=== PATIENT | female | born 1985 | race Caucasian/White ===

== ENCOUNTER → 2019-08-31 11:46 | Outpatient (BNVA) | payer MEDICARE, MEDICAID, SELFPAY | PROVIDERS: Visit Provider Nurse Practitioner Family | DX: F41.9 Anxiety disorder, unspecified (principal); R19.4 Change in bowel habit; E78.2 Mixed hyperlipidemia; Z79.899 Other long term (current) drug therapy | CPT/HCPCS: 80053; 80061; 81001; 81003; 82784; 83036; 83516; 84443; 85025; 87329 ==

== ENCOUNTER 2019-11-15 18:42 | Emergency (ER) | payer MEDICARE, MEDICAID, SELFPAY ==
[2019-11-15 18:43] VITALS: BP 147/85; PULSE 83; RESP 16; TEMP 36.9; O2SAT 95; BMI 39.1
--- NOTE | 2019-11-15 18:48 | ECG_ITS ---
Measurements Intervals [place] Rate: 82 P: 47 UT: 163 QRS: 50 QRSD: 82 T: 22 QT: 395 QTc: 462 SINUS RHYTHM WITH OCCASIONAL SUPRAVENTRICULAR PREMATURE COMPLEXES No previous ECG available for comparison Electronically Signed On 11-16-2019 16:56:23 CDT by Gerson Abbasi M.D. [id number] f
--- NOTE | 2019-11-15 18:48 | XR_ITS ---
WS: [id number] XR chest 1V portable [id number] REASON FOR EXAM: cough FINDINGS: The heart and mediastinal interfaces were normal. The lung cho are well aerated. No pneumonia, pleural effusion, pulmonary edema, or mass effect. The hilum and apices normal. Granulomas are seen off the left hilar region. There is no osseous abnormalities. XR/XR chest 1V portable [id number] IMPRESSION: Negative chest for acute findings.
--- NOTE | 2019-11-15 19:07 | W.ED.SEIZURE ---
HPI - Seizure General: Chief Complaint: Seizure Stated Complaint: SEIZURE Time Seen by Provider: 11/15/19 18:42 History of Present Illness: HPI Narrative: Estrella is a 34-year-old female who comes in by EMS with report of a seizure. The patient arrives here and admits openly that she has been diagnosed with pseudoseizures . Patient states that she was scared because she was being peer pressure into smoking marijuana. The patient states she is feeling better now. She denies any complaints or concerns. The patient denies any injuries from the seizure. She states she still feels scared and anxious. Associated symptoms: Deny chest pain, chills, confusion, diaphoresis, fever(s), malaise or syncope Review of Systems General: Reports: other (negative unless marked) Const: Denies: fever, chills, body aches, fatigue, malaise or diaphoresis Eyes: Denies: change in vision or blurry vision ENMT: Denies: throat pain, painful swallowing, hoarseness, ear pain, ear discharge, Change in hearing or nasal discharge Card: Denies: chest pain, palpitations, irregular heart rhythm, syncope, pre-syncope, shortness of breath on exertion or shortness of breath when lying down Resp: Denies: shortness of breath, productive cough, non-productive cough, wheezing, coughing up blood or chest congestion GI: Denies: abdominal pain, nausea, vomiting, vomiting blood, coffee grounds in vomit, diarrhea, constipation, cramping, blood in stool or black tarry stool : Denies: flank pain, painful urination, urinary frequency, urinary urgency, decreased urine ouput, urinary incontinence or blood in urine Musc: Denies: neck pain, back pain, extremity pain, extremity swelling, joint pain, joint swelling, joint warmth or joint stiffness Skin/Breast: Denies: rash, skin tenderness or yellow skin Neuro: Denies: headache, numbness in extremities, weakness in extremities, changes in sensation, lack of coordination, difficulty walking, dizziness, vertigo or confusion Endo: Denies: excessive thirst, tired all the time, cold intolerance, excessive sweating, flushing or hot flashes [place]/Lymph: Denies: easy bruising, easy bleeding, petechiae or enlarged lymph nodes All/Imm: Denies: hives, throat swelling, tongue swelling, facial swelling or acute wheezing [facility] ED PFSH: Medical History Anxiety Pseudoseizures Vitamin D deficiency Family History Mother Cancer Father Addisons disease Other Diabetes Graves disease Social History Smoking and tobacco status: heavy tobacco smoker Alcohol intake: never Female Reproductive History: Date of last menstrual period: 11/15/19 Physical Exam Const: COMMON NORMALS: no apparent distress, oriented x3, no limitations, healthy appearing and well nourished EXAM LIMITATIONS: no altered mental status GENERAL APPEARANCE: cooperative, well kempt and well developed ORIENTATION/CONSCIOUSNESS: Yes awake HENMT: COMMON NORMALS: normocephalic, head/scalp atraumatic, hearing grossly normal bilaterally, external ears normal, EAC's normal, external nose normal and moist oral mucous membranes HEAD & SCALP: normal to inspection, normocephalic and atraumatic FACE & SINUS: normal facial exam and face symmetric NOSE: external nose normal and nares normal EXTERNAL EAR: Yes external ears normal EXTERNAL AUDITORY CANAL: EAC's normal MOUTH: oral and palatal mucosa normal and tongue normal Eye: COMMON NORMALS: PERRL, EOMs intact bilaterally, conjunctivae normal and no scleral icterus GENERAL EYE: normal appearance of both eyes and normal light reflex CONJUNCTIVA: Yes conjunctivae normal SCLERA: sclerae normal CORNEA: Yes corneas normal PUPIL: Yes PERRL DIRECT OPHTHALMOSCOPY: Yes normal light reflex Neck/C-Spine: COMMON NORMALS: full ROM, no lymphadenopathy, supple, no meningeal signs and no JVD GENERAL: Yes normal visual inspection and Yes trachea midline CERVICAL SPINE: Yes cervical ROM normal Chest: COMMONS NORMALS: inspection of chest normal and palpation of chest normal Resp: COMMON NORMALS: normal respiratory effort, no retractions, no use of accessory muscles and clear to auscultation bilaterally EFFORT & INSPECTION: Yes able to speak in complete sentences AUSCULTATION: clear to auscultation bilaterally Cardio: COMMON NORMALS: no JVD, regular rate, regular rhythm, S1 normal heart sound, S2 normal heart sound, no gallops, no clicks, no murmurs and no rub JUGULAR VENOUS DISTENTION: no JVD RATE: regular rate RHYTHM: regular rhythm HEART SOUNDS: S1 normal and S2 normal GI: COMMON NORMALS: soft to palpation, non-tender, no hepatosplenomegaly and no masses INSPECTION: Yes normal to inspection PALPATION: Yes soft and Yes no hepatosplenomegaly : COMMON NORMALS: Yes no CVA tenderness BLADDER/KIDNEY EXAM: Yes no CVA tenderness Back/Pelvis: COMMON NORMALS: no CVA tenderness, thoracic and lumbar spine normal to inspection, no thoracic nor lumbar tenderness and thoraco-lumbar ROM normal Extremity: COMMON NORMALS: normal to inspection, full ROM, normal capillary refill, no joint enlargement, no clubbing, cyanosis or edema and no calf tenderness Neuro: COMMON NORMALS: oriented x3, CN's II-XII intact bilaterally, moves all extremities, no focal motor deficits and no sensory deficits noted MENINGEAL SIGNS: Yes no meningeal signs Psych: COMMON NORMALS: mental status grossly normal, thought process normal, cooperative, affect normal, speech normal and activity/motor behavior normal APPEARANCE: Yes well kempt SPEECH: Yes normal speech THOUGHT PROCESS: normal thought process Skin: COMMON NORMALS: no rashes or lesions noted, skin turgor normal, no jaundice, no petechiae and no mottling GENERAL SKIN EXAM: no rashes or lesions noted and turgor normal Course Vital Signs: Vital signs: Vital Signs Temperature 98.5 F 11/15/19 18:43 Pulse Rate 95 11/15/19 20:33 Respiratory Rate 16 11/15/19 20:33 Blood Pressure 136/101 11/15/19 20:33 Pulse Oximetry 99 11/15/19 20:33 MDM - Seizure MDM Narrative: Medical decision making narrative: The patient is completely back to normal at this time. Upon further history it does not sound as though she had a full-blown tonic-clonic seizure. She tells me that she got nervous when they tried to make her smoke weight and she did this just to not have to be exposed to it any longer. I will not start any anticonvulsant medications as this does not sound like a true seizure disorder but I will have her follow seizure precautions until she is seen by Dr. Carrillo or her primary care physician. Of note the patient's urine did come back positive for blood but she states she is currently on her menstrual cycle. Lab Data: Attestation: I reviewed the patient's lab results. Labs: Lab Results 11/15/19 11/15/19 11/15/19 Range/Units 18:52 18:52 19:05 WBC 7.9 (4.0-10.0) 10^3/ uL RBC 4.66 (4.1-5.3) 10^6/u L Hgb 13.6 (11.5-15.3) g/dL Hct 42.0 (37.0-47.0) % MCV 90.1 (81-99) fL MCH 29.2 (28.0-34.0) pg MCHC 32.4 (30.0-36.0) g/dL RDW 13.5 (12.1-15.1) % Plt Count 147 (130-400) 10^3/c mm MPV 11.1 H (7.4-10.4) fL Neut % (Auto) 75.5 % Lymph % (Auto) 19.0 % [place] % (Auto) 5.1 % Eos % (Auto) 0.0 % Baso % (Auto) 0.1 % Neut # (Auto) 5.9 (1.8-7.7) 10^3/u L Lymph # (Auto) 1.5 (0.8-4.8) 10^3/u L [place] # (Auto) 0.4 (0.2-0.9) 10^3/u L Eos # (Auto) 0.0 (0.0-0.8) 10^3/u L Baso # (Auto) 0.0 (0.0-0.1) 10^3/u L Nucleated RBC % (a uto) 0 % Nucleated RBCs # 0.0 /100WBC Sodium 140 (136-145) mmol/L Potassium 4.0 (3.5-5.1) mmol/L Chloride 105 (98-107) mmol/L Carbon Dioxide 26 (22-29) mmol/L Anion Gap 13.0 (5-19) BUN 7 (6-20) mg/dL Creatinine 0.9 (0.5-0.9) mg/dL GFR Calculation 71.7 L (90-130) mL/min Glucose 109 (65-115) mg/dL Calculated Osmolal ity 286 (285-295) mOsm/k g Calcium 8.9 (8.5-10.5) mg/dL Magnesium 2.1 (1.7-2.3) mg/dL Total Bilirubin 0.2 (0.15-1.2) mg/dL AST 16 (0-32) U/L ALT 13 (0-33) U/L Alkaline Phosphata se 73 (35-105) IU/L Creatine Kinase 68 (26-192) U/L Total Protein 7.6 (6.6-8.7) g/dL Albumin 4.2 (3.5-5.2) g/dL Globulin 3.4 (1.3-4.6) g/dL Urine Color Yellow (Yellow) Urine Appearance Clear (CLEAR) Urine pH 7 (5-7) Ur Specific Gravit y 1.005 (1.005-1.030) Urine Protein Neg (Negative) Urine Glucose (UA) Norm (Normal) Urine Ketones Negative (Negative) Urine Blood 3+ H (Negative) Urine Nitrate Negative (Negative) Urine Bilirubin Neg (NEGATIVE) Urine Urobilinogen Norm (Negative) mg/dL Ur Leukocyte Angela ase Negative (Negative) Urine RBC 50-80 H (0-2) /hpf Urine WBC None (0-5) /hpf Ur Squamous Epith Cells 0-4 H (0-5) Urine Bacteria 1+ H (NONE) Urine Opiates Scre en (Negative) ng/mL Ur Barbiturates Sc reen (Negative) ng/mL Ur Phencyclidine S crn (Negative) ng/mL Ur Amphetamines Sc reen (Negative) ng/mL U Benzodiazepines Scrn (Negative) ng/mL Urine Cocaine Scre en (Negative) ng/mL U Marijuana (THC) Screen (Negative) ng/mL Ethyl Alcohol < 10 (0-10) mg/dL 11/15/19 Range/Units 19:05 WBC (4.0-10.0) 10^3/ uL RBC (4.1-5.3) 10^6/u L Hgb (11.5-15.3) g/dL Hct (37.0-47.0) % MCV (81-99) fL MCH (28.0-34.0) pg MCHC (30.0-36.0) g/dL RDW (12.1-15.1) % Plt Count (130-400) 10^3/c mm MPV (7.4-10.4) fL Neut % (Auto) % Lymph % (Auto) % [place] % (Auto) % Eos % (Auto) % Baso % (Auto) % Neut # (Auto) (1.8-7.7) 10^3/u L Lymph # (Auto) (0.8-4.8) 10^3/u L [place] # (Auto) (0.2-0.9) 10^3/u L Eos # (Auto) (0.0-0.8) 10^3/u L Baso # (Auto) (0.0-0.1) 10^3/u L Nucleated RBC % (a uto) % Nucleated RBCs # /100WBC Sodium (136-145) mmol/L Potassium (3.5-5.1) mmol/L Chloride (98-107) mmol/L Carbon Dioxide (22-29) mmol/L Anion Gap (5-19) BUN (6-20) mg/dL Creatinine (0.5-0.9) mg/dL GFR Calculation (90-130) mL/min Glucose (65-115) mg/dL Calculated Osmolal ity (285-295) mOsm/k g Calcium (8.5-10.5) mg/dL Magnesium (1.7-2.3) mg/dL Total Bilirubin (0.15-1.2) mg/dL AST (0-32) U/L ALT (0-33) U/L Alkaline Phosphata se (35-105) IU/L Creatine Kinase (26-192) U/L Total Protein (6.6-8.7) g/dL Albumin (3.5-5.2) g/dL Globulin (1.3-4.6) g/dL Urine Color (Yellow) Urine Appearance (CLEAR) Urine pH (5-7) Ur Specific Gravit y (1.005-1.030) Urine Protein (Negative) Urine Glucose (UA) (Normal) Urine Ketones (Negative) Urine Blood (Negative) Urine Nitrate (Negative) Urine Bilirubin (NEGATIVE) Urine Urobilinogen (Negative) mg/dL Ur Leukocyte Angela ase (Negative) Urine RBC (0-2) /hpf Urine WBC (0-5) /hpf Ur Squamous Epith Cells (0-5) Urine Bacteria (NONE) Urine Opiates Scre en Negative (Negative) ng/mL Ur Barbiturates Sc reen Negative (Negative) ng/mL Ur Phencyclidine S crn Negative (Negative) ng/mL Ur Amphetamines Sc reen Negative (Negative) ng/mL U Benzodiazepines Scrn Negative (Negative) ng/mL Urine Cocaine Scre en Negative (Negative) ng/mL U Marijuana (THC) Screen Positive H (Negative) ng/mL Ethyl Alcohol (0-10) mg/dL EKG Data^: EKG 1: Attestation: I personally reviewed and interpreted this EKG as follows: EKG interpretation date: 11/15/19 EKG interpretation time: 19:05 Interpretation: Normal sinus rhythm at 82 beats a minute, normal axis, no blocks, normal intervals. No acute findings. Discharge Plan Discharge Patient Disposition: Home, Self-Care Clinical Impression: Pseudoseizures, Generalized seizure Condition: Stable Prescriptions: No Action buspirone 15 mg tablet 15 mg PO BID PRN (Reason: anxiety) 30 Days Qty: 60 RF: 2 fluoxetine [Prozac] 20 mg capsule 20 mg PO DAILY 30 Days Qty: 30 RF: 2 Discharge Orders: Discharge Order (Routine); Ordered 11/15/19 Ordered By: Constanza Hernández Referrals: Asha Carrillo MD [Physician] - 1-3 days Discharge Diet: Advance as tolerated Discharge Activity: Increase activity as tolerated Patient Instructions: Epilepsy (ED), Recurrent Seizures Adult (ED) Activity Restrictions/Additional Instructions: Please return to the ER immediately for any of the signs or symptoms listed on your discharge instruction sheets, worsening/changing of your symptoms, you are not getting better as quickly as expected, or for ANY other cause or concerns. No driving, no working at heights, no tub baths, no swimming alone or anything else that would put you at risk should you have another seizure. Discharge Date/Time: 11/15/19 20:34 Coding Level of Care Code ED Cement Mixer Driver for Chg Fwd Exam Comprehensive
[2019-11-15 19:09] LABS: Basophils % 0.1 %; Hemoglobin 13.6 g/dL (11.5-15.3); Lymphocytes # 1.5 10^3/uL (0.8-4.8); Mean Corpuscular HGB Conc 32.4 g/dL (30.0-36.0); Mean Corpuscular Hemoglobin 29.2 pg (28.0-34.0); Mean Corpuscular Volume 90.1 fL (81-99); Mean Platelet Volume 11.1 fL (7.4-10.4); Monocytes # 0.4 10^3/uL (0.2-0.9); Monocytes % 5.1 %; Neutrophils # 5.9 10^3/uL (1.8-7.7); Neutrophils % 75.5 %; Nucleated Red Blood Cells % 0 %; Platelet Count 147 10^3/cmm (130-400); Red Blood Count 4.66 10^6/uL (4.1-5.3); Red Cell Distribution Width 13.5 % (12.1-15.1); White Blood Count 7.9 10^3/uL (4.0-10.0)
[2019-11-15 19:26] LABS: Alanine Aminotransferase 13 U/L (0-33); Albumin Level 4.2 g/dL (3.5-5.2); Alcohol Level < 10 mg/dL (0-10); Alkaline Phosphatase 73 IU/L (35-105); Aspartate Amino Transferase 16 U/L (0-32); Blood Urea Nitrogen 7 mg/dL (6-20); Calcium 8.9 mg/dL (8.5-10.5); Carbon Dioxide 26 mmol/L (22-29); Chloride 105 mmol/L (98-107); Creatine Phosphokinase 68 U/L (26-192); Globulin 3.4 g/dL (1.3-4.6); Glomerular Filtration Rate 71.7 mL/min (90-130); Glucose 109 mg/dL (65-115); Magnesium 2.1 mg/dL (1.7-2.3); Osmolality Calculated 286 mOsm/kg (285-295); Sodium 140 mmol/L (136-145); Total Bilirubin 0.2 mg/dL (0.15-1.2); Total Protein 7.6 g/dL (6.6-8.7)
[2019-11-15 19:45] LABS: Amphetamines Screen Urine Negative (Negative); Barbiturates Screen Urine Negative (Negative); Benzodiazepines Screen Urine Negative (Negative); Cocaine Screen Urine Negative (Negative); Opiate Screen Urine Negative (Negative); PCP Screen Urine Negative (Negative); THC Screen Urine Positive (Negative)
[2019-11-15 19:49] LABS: Add Urine Culture? Yes; Bacteria Urine 1+; Bilirubin Urine Neg (NEGATIVE); Blood Urine 3+ (Negative); Glucose Urine UA Norm (Normal); Ketones Urine Negative (Negative); Leukocyte Esterase Urine Negative (Negative); Nitrate Urine Negative (Negative); Protein Urine Neg (Negative); RBC Urine 50-80 /hpf (0-2); Specific Gravity, Urine 1.005 (1.005-1.030); Squamous Epithelial Cell Urine 0-4 (0-5); Urine Appearance Clear (CLEAR); Urine Color Yellow (Yellow); Urobilinogen Urine Norm (Negative); pH Urine 7 (5-7)
[2019-11-15] MEDS: sodium chloride 0.9% 1,000 ML 999 ML IV (19:50)
[2019-11-15] MEDS: ondansetron 2 mg/ML SDV 2 mL 4 MG IVP (19:50)
[2019-11-15 19:54] VITALS: BP 141/103; PULSE 87; RESP 18; O2SAT 97
[2019-11-15 20:33] VITALS: BP 136/101; PULSE 95; RESP 16; O2SAT 99
--- NOTE | 2019-11-16 15:15 | DCPLANNER ---
field sales manager had message to schedule a follow up appointment for patient with Dr. Carrillo. field sales manager called the office of Dr. Carrillo, spoke with Anusha, a follow up appointment was scheduled for Wednesday, December 11, 2019 at 11:[address] Carrillo. field sales manager called patient at phone number , unable to speak with anyone at this time, a voicemail was left for patient to return upper caser phone call. field sales manager will send patient a letter with the appointment information.
--- NOTE | 2020-01-12 14:38 | DCPLANNER ---
Patients appointment scheduled for 01.11.[address] Steve office, the appointment was cancelled.
== END 2019-11-15 20:34 | disposition home or self-care (01) ==
LOC: ER 20:34
PROVIDERS: Emergency Provider Emergency Medicine
DX: G40.89 Other seizures (principal); F17.210 Nicotine dependence, cigarettes, uncomplicated
CPT/HCPCS: 12345; 71045; 80053; 80306; 80307; 81001; 82550; 83735; 85025; 87077; 87086; 87186; 93005; 96361; 96374; 99284; J2405; J7030

== ENCOUNTER → 2019-11-18 14:05 | Outpatient (BNVA) | payer MEDICARE, MEDICAID, SELFPAY | PROVIDERS: Visit Provider Nurse Practitioner Family | DX: F41.9 Anxiety disorder, unspecified (principal) | CPT/HCPCS: 80053; 81001 ==

== ENCOUNTER → 2019-12-02 11:54 | Outpatient (BNVA) | payer MEDICARE, MEDICAID, SELFPAY | PROVIDERS: Visit Provider Nurse Practitioner Family | DX: Z71.1 Person with feared health complaint in whom no diagnosis is made (principal); R31.9 Hematuria, unspecified | CPT/HCPCS: 81001; 81025 ==

== ENCOUNTER → 2020-01-17 12:11 | Outpatient (BNVA) | payer MEDICARE, MEDICAID, SELFPAY | PROVIDERS: PCP Nurse Practitioner Family; Visit Provider Specialist | DX: G40.909 Epilepsy, unspecified, not intractable, without status epilepticus (principal) | CPT/HCPCS: 99204 ==

== ENCOUNTER → 2021-04-25 09:59 | Outpatient (BNVA) | payer MEDICARE, MEDICAID, SELFPAY | PROVIDERS: PCP Nurse Practitioner Family; Visit Provider Nurse Practitioner Family | DX: N91.0 Primary amenorrhea (principal); G47.00 Insomnia, unspecified; H61.23 Impacted cerumen, bilateral; H66.93 Otitis media, unspecified, bilateral; E55.9 Vitamin D deficiency, unspecified; Z30.011 Encounter for initial prescription of contraceptive pills; F32.9 Major depressive disorder, single episode, unspecified; F41.9 Anxiety disorder, unspecified; Z13.6 Encounter for screening for cardiovascular disorders; Z79.899 Other long term (current) drug therapy | CPT/HCPCS: 80053; 80061; 81003; 81025; 82306; 83036; 84443; 85025 ==

== ENCOUNTER → 2021-06-20 15:30 | Outpatient (BNVA) | payer MEDICARE, MEDICAID, SELFPAY | PROVIDERS: PCP Nurse Practitioner Family; Visit Provider Nurse Practitioner Family | DX: R10.11 Right upper quadrant pain (principal) | CPT/HCPCS: 74018 ==

== ENCOUNTER 2021-11-12 11:30 | Emergency (ER) | payer MEDICARE, MEDICAID, SELFPAY ==
--- NOTE | 2021-11-12 11:33 | ED.C_ITS ---
HPI - Psych General: Chief Complaint: Psychiatric Symptoms Stated Complaint: DEPRESSION Time Seen by Provider: 11/12/21 11:32 History of Present Illness: Ms. Coello is a 36-year-old lady with history of depression who presents to the emergency department for mental health evaluation. Per the patient she currently lives with her mother and got into an argument earlier with her mother and agreed to come to the hospital to de- escalate the argument. She adamantly denies suicidal or homicidal ideation. She does not have a history of suicide attempts and reports depression is typically well controlled on her medication. Argument stems from the fact that she plans to leave living with her mother and moved with her girlfriend. She has been with her girlfriend for approximately 7 months and known her for 1 year. She feels safe about this relationship and good about the relationship. Otherwise denies medical complaints. Per nursing report from EMS and law enforcement is that the patient did not make any suicidal threats or actions. Onset (ago): minute(s) Context: significant life stressor Review of Systems General: Reports: 10 or more systems reviewed and unremarkable except in HPI and below PFSH ED PFSH: Medical History Amenorrhea Anxiety Anxiety and depression Encounter for oral contraception initial prescription Hematuria Hidradenitis suppurativa Hypertension screen Impacted cerumen of both ears Insomnia Otitis media Otitis media of both ears Pseudoseizures RUQ abdominal pain Tinnitus Vitamin D deficiency Family History Mother Cancer Father Addisons disease Other Diabetes Graves disease Social History Smoking and tobacco status: heavy tobacco smoker Alcohol intake: never History of recent travel: No Physical Exam Const: COMMON NORMALS: alert GENERAL APPEARANCE: cooperative and well developed HENMT: COMMON NORMALS: normocephalic and atraumatic HEAD & SCALP: normocephalic and atraumatic Eye: COMMON NORMALS: conjunctivae normal CONJUNCTIVA: Yes conjunctivae normal SCLERA: sclerae normal Neck/C-Spine: COMMON NORMALS: supple GENERAL: Yes trachea midline Resp: COMMON NORMALS: normal respiratory effort EFFORT & INSPECTION: Yes able to speak in complete sentences Cardio: COMMON NORMALS: regular rate and regular rhythm RATE: regular rate RHYTHM: regular rhythm Extremity: GENERAL: Yes normal exam except as noted and No edema Neuro: COMMON NORMALS: moves all extremities SENSORIUM/ORIENTATION: Yes alert and No Orientation impaired Psych: COMMON NORMALS: mental status grossly normal and Normal thought process present THOUGHT PROCESS: Normal thought process present Course ED course: - Patient was seen and evaluated by me at bedside -Vital signs obtained - Initial evaluation notable for exam as above. No SI or HI. -No indications for labs or imaging studies. -With the patient's permission I spoke with the patient's mother. Challenging situation she feels strongly that the patient is easily taking advantage of. I did have case management discussed with patient and her mother at mother's request. -Ultimately there is no indication to put patient on 96-hour hold. She denies suicidal or homicidal ideation. On my evaluation of the patient and serial reexamination she remained calm and cooperative. She exhibits linear and goal oriented thought process. She speaks normally and we had normal interaction. Per mother there is concern over possible developmental delay however on my exam, if present, this is not significant to a point that would impair decision- making capacity in this context. Additionally the mother does not have any paperwork other than being the patient's payee to indicate guardianship or other legal decision-making capacity given the patient is an adult. - Upon serial reexamination after treatment the patient was similar - Based on patient history, evaluation, and testing as interpreted the most likely cause of the patient's condition is social stressors - The results of ED evaluation were discussed with the patient occluding followup plan, and return precautions. The patient verbalized understanding and felt safe for discharge. - Patient discharged in satisfactory condition. Vital Signs: Vital signs: Vital Signs Temperature 98.0 F 11/12/21 13:25 Pulse Rate 67 11/12/21 13:25 Respiratory Rate 17 11/12/21 13:25 Blood Pressure 153/82 11/12/21 13:25 Pulse Oximetry 96 11/12/21 13:25 [facility] - Psych Medical Decision Making 36-year-old lady brought in by ambulance after altercation with family for mental health exam. Patient denies suicidal or homicidal ideation. No indicat ion for 96-hour hold. Discharged in satisfactory condition. Medical Records I reviewed the patient's medical records. Lab Data I reviewed the patient's lab results. Discharge Plan Discharge Patient Disposition: Home Clinical Impression: Emotionally strained family style Condition: Stable Prescriptions: No Action fluoxetine 20 mg capsule 20 mg PO DAILY 30 Days Qty: 30 2RF temazepam 30 mg capsule 30 mg PO DAILY 30 Days Qty: 30 0RF Discharge Orders: Discharge ED (Routine); Ordered 11/12/21 Ordered By: Madi Garcia Referrals: NEGAR Hamlin, SENIOR NET APPLICATION DEVELOPER [Primary Care Provider] - Discharge Diet: Usual diet Discharge Activity: Resume usual activity Activity Restrictions/Additional Instructions: Thank you for visiting the emergency department. You were seen and evaluated for family strain/strife. Please follow-up with your primary care provider. Return to the emergency department for thoughts of hurting yourself or anyone else or anything else that you are concerned about and feel needs emergency department evaluation. Coding Level of Care Code ED Freight Rate Analyst for Haylee Rankin Exam Comprehensive
[2021-11-12 11:38] VITALS: BP 165/87; PULSE 66; RESP 18; TEMP 36.7; O2SAT 95; BMI 32.3
[2021-11-12] MEDS: nicotine 14 mg Patch 1 PATCH TRANSDERMA (12:55)
[2021-11-12 13:25] VITALS: BP 153/82; PULSE 67; RESP 17; TEMP 36.7; O2SAT 96
== END 2021-11-12 13:27 | disposition home or self-care (01) ==
PROVIDERS: Emergency Provider Emergency Medicine; PCP Nurse Practitioner Family
DX: Z63.8 Other specified problems related to primary support group (principal); F32.A Depression, unspecified
CPT/HCPCS: 99283

== ENCOUNTER → 2024-10-21 08:30 | Outpatient (BNVA) | payer MEDICARE, SELFPAY | PROVIDERS: PCP Nurse Practitioner Family; Visit Provider Nurse Practitioner Family | DX: F41.9 Anxiety disorder, unspecified (principal); E55.9 Vitamin D deficiency, unspecified; Z79.899 Other long term (current) drug therapy; E78.5 Hyperlipidemia, unspecified | CPT/HCPCS: 80053; 80061; 81003; 82306; 82310; 83036; 83970; 84439; 84443; 85025 ==

== ENCOUNTER → 2025-05-25 09:46 | Outpatient (BNVA) | payer MEDICARE, SELFPAY | PROVIDERS: PCP Nurse Practitioner Family; Visit Provider Nurse Practitioner Family | DX: J22 Unspecified acute lower respiratory infection (principal); M41.34 Thoracogenic scoliosis, thoracic region; M51.34 Other intervertebral disc degeneration, thoracic region | CPT/HCPCS: 71046 ==